=== PATIENT | male | born 1990 | race Caucasian/White ===

== ENCOUNTER 2017-08-30 22:21 | Observation (INO) ==
--- NOTE | 2017-08-30 23:24 | Emergency Department Note ---
Disposition Clinical Impression: Esophageal obstruction due to food impaction Disposition: Admitted As Inpatient Condition: Fair Referrals: NONE,PCP [Primary Care Provider] - Time of Disposition: 23:27 General Adult HPI - General Chief complaint: ED Dental/Oral Stated complaint: FB in throat Time Seen by Provider: 08/30/17 23:16 Source: patient Mode of arrival: private vehicle Limitations: no limitations Nursing Notes Reviewed: Yes Vital Signs Reviewed: Yes - History of Present Illness HPI Narrative: Patient presents to the emergency Department after having eaten some chicken and feel like it got stuck in his esophagus. This started about 7:30 this evening. He went to [facility] and was diagnosed with an esophageal food impaction. They gave him glucagon with no relief. He states that just prior to transfer here they gave him a glass of water and he was unable to get any of that water down. Since she has been in this emergency department he is unable to swallow his own saliva and keeps spitting it out. He has had this issue a number of times in the past. The last time he had an impaction and had to be scoped was 3 years ago. Pain Scale: 0 Improves with: nothing Worsens with: nothing Associated symptoms: Reports: denies other symptoms - Related Data Allergies Allergy/AdvReac Type Severity Reaction Status Date / Time No Known Allergies Allergy Verified 08/30/17 22:26 All systems ED: reviewed and negative except as stated. Constitutional: Denies: fever Cardiovascular: Denies: chest pain Respiratory: Denies: dyspnea Gastrointestinal: Denies: abdominal pain, vomiting Musculoskeletal: Denies: back pain Integumentary: Denies: rash Past Medical History - Past Medical History Attestation: Yes The following information was validated with the patient. Source: patient, old records reviewed, nursing notes reviewed Medical history: Reports: no medical history - Social History Smoking Status: Current every day smoker Alcohol use: Reports: none Drug use: Reports: none Physical Exam - General Limitations: no limitations General appearance: alert, in no apparent distress - Head Head exam: atraumatic, normocephalic, normal inspection - Eye Eye exam: Present: normal appearance, PERRL. Absent: scleral icterus, conjunctival injection - ENT ENT exam: normal exam, mucous membranes moist, normal external ear exam - Neck Neck exam: Present: normal inspection, full ROM, trachea midline - Chest Chest inspection: Present: normal inspection, symmetric chest wall rise. Absent : tenderness - Respiratory Respiratory exam: Present: normal lung sounds bilaterally. Absent: respiratory distress, wheezes - Cardiovascular Cardiovascular exam: Present: regular rate, normal rhythm, normal heart sounds - Abdominal Exam Abdominal exam: Present: soft, Non-Tender - Extremities Exam Extremities exam: Present: normal inspection. Absent: pedal edema - Neurological Exam Neurological exam: Present: alert, oriented X3 - Psychiatric Psychiatric exam: Present: normal affect, normal mood - Skin Skin exam: Present: warm, dry. Absent: rash Course Course Narrative: Patient presents with an esophageal impaction of chicken. Medicinal attempts to alleviate the obstruction have failed. Patient was transferred from [place] because they could not handle the issue. On my evaluation the patient is not really in any distress although he still can handle his own saliva. I spoke with the physician loss control engineer for endoscopy. She recommended admitting the patient to the hospital and she will arrange for endoscopy and food impaction removal. - Consultations Consultation #1: Dr. Pressley, surgery - I discussed the case with the surgeon loss control engineer for endoscopy. She advised admitting the patient to the floor and that she will manage it from there. Time: 23:27 Vital Signs Temperature 98.0 F 08/30/17 22:24 Pulse Rate 84 08/30/17 22:24 Respiratory Rate 16 08/30/17 22:24 Blood Pressure 126/80 08/30/17 22:24 O2 Sat by Pulse Oximetry 96 08/30/17 22:24 Temperature 98.0 F 08/30/17 22:24 Pulse Rate 84 08/30/17 22:24 Respiratory Rate 16 08/30/17 22:24 Blood Pressure 126/80 08/30/17 22:24 O2 Sat by Pulse Oximetry 96 08/30/17 22:24 Oxygen Delivery Oxygen Delivery Room Air
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
[2017-08-31] MEDS ORDERED: Ondansetron 4 MG/2 ML VIAL IVP PRN (06:36)
[2017-08-31] MEDS ORDERED: Lidocaine -MPF 2% 2 ML VIAL ONE (06:44)
[2017-08-31] MEDS ORDERED: *HR* Propofol 200 MG/20 ML VIAL IVP ONE ×3 (06:44→07:14)
[2017-08-31] MEDS ORDERED: 0.9 % Sodium Chloride 1,000 ML IVC SCH (06:45)
[2017-08-31] MEDS ORDERED: Tetracaine/Benzocaine/Butamben 200MG/SPRAY (100SPY/BOT) MM ONE (07:46)
[2017-08-31] MEDS ORDERED: Simethicone 40 MG/0.6 ML MLS IR ONE (07:46)
--- NOTE | 2017-08-31 07:55 | Anesthesia Evaluation PreOp ---
Date of Encounter: 08/31/17 Time of Encounter: 07:54 - Past History Planned Operation: EGD Cardiac History: Denies any Significant Hx Pulmonary History: Smoker BRICK SORTER History: Denies Any Significant HX Other Medical History: Other (Esophageal Foreign Body) Anesthesia History: No Prior Anesthetic Complications, Past Anesthesia (EGD x 4) Alcohol Use: occasionally Drug use: none Medications and Allergies 3 Allergy/AdvReac Type Severity Reaction Status Date / Time No Known Allergies Allergy Verified 08/30/17 22:26 - Meds/Allergy Pre-op Review Medications Reviewed: Yes Allergies Reviewed: Yes Beta Blockers on Current Med List: No Anesthesia Exam Vital Signs/O2 Sat, Most Current Temp Pulse Resp BP Pulse Ox 97.4 F L 65 15 116/70 95 08/31/17 07:44 08/31/17 07:44 08/31/17 07:44 08/31/17 07:44 08/31/17 07:44 - HEENT Pupil (Motor): Pupils equal, EOMI Mallampati: II Teeth: Normal Oral Opening: Greater than 3 - BRICK SORTER LOC: Oriented BRICK SORTER Motor: Normal RUE, Normal LUE, Normal RLE, Normal LLE, Normal Face BRICK SORTER Sensory: Normal: RUE, LUE, RLE, LLE, Face - Cardiac Rhythm: Regular Murmur: None JVD: No Carotid Bruit: No - Pulmonary Breath Sounds: bilateral Clear Respiratory Effort: Symmetrical Anesthesia Assess/Plan ASA Score: 2 Modified Happy Scale for Level of Consciousness: Cooperative, oriented, and tranquil Anesthetic Plan: MAC Autologous Blood: Yes Monitoring Plan: Standard Monitors Recovery Plan: Other
[2017-08-31] MEDS ORDERED: Pantoprazole 40 MG VIAL IVP SCH (09:00)
--- NOTE | 2017-08-31 10:11 | Discharge Summary ---
<Andry Meredith W - Last Filed: 08/31/17 10:45> - NOTES TO OUTPATIENT PROVIDER Notes to Outpatient Provider: Patient tolerated procedure well. Foreign body was removed. Esophageal stricture was noted. Patient has been placed on Puree diet. Orders not resulted at time of discharge: none Date of Encounter: 08/31/17 Time of Encounter: 10:18 - Discharge Diagnosis (1) Esophageal obstruction due to food impaction Priority: Primary Status: Acute (2) Dysphagia Priority: Secondary Status: Chronic Qualifiers: Dysphagia type: esophageal phase Qualified Code(s): R13.10 - Dysphagia, unspecified General Surgery Exam Initial Vital Signs Temp Pulse Resp BP Pulse Ox 98.0 F 84 16 126/80 96 08/30/17 22:24 08/30/17 22:24 08/30/17 22:24 08/30/17 22:24 08/30/17 22:24 - General physical appearance well developed, well nourished, no distress - Eyes normal ocular movement - ENT normal mucosa - Neck no masses, trachea midline, no lymphadectomy - Respiratory normal expansion, normal respiratory effort, clear to auscultation - Cardiovascular Cardiovascular exam: Present: RRR, no murmurs/rubs/gallops - Abdomen Abdomen general surgery: Present: bowel sounds present, soft, non tender - Integumentary Integumentary general surgery: Present: warm and dry - Neurologic Present: CN 2-12 grossly intact, normal coordination, normal sensation - Musculoskeletal Present: normal gait, normal posture - Psychiatric Psychiatric general surgery: Present: appropriate, speech is normal, memory intact - Hospital Course Hospital course: Mr. Olguin is a 27 year old male who presented to the ED late on 08/30/17 with esophageal foreign body. the patient was admitted to the hospital floor and monitored. the Patient received and Upper GI endoscopy with removal of foreign body the morning of 08/31/17. Patient handled procedure well and received diet and follow up instructions. - Time Spent with Patient Total time spent providing and/or coordinating discharge services: Greater than 30 minutes - Discharge Medications Home Medications: No Known Home Drugs 08/31/17 [History] Allergies/Adverse Reactions: 3 Allergy/AdvReac Type Severity Reaction Status Date / Time No Known Allergies Allergy Verified 08/31/17 09:03 Date of admission: 08/31/17 00:57 Primary care physician: PCP WILFRED Discharging clinician: Kaylee Medrano Anticipated date of discharge: 08/31/17 Procedures and tests throughout hospitalization: Upper GI endoscopy Labs on day of discharge: no labs ordered at at this time - Impressions esophageal foreign body - Patient Status Disposition: Home, Self-Care Condition: Good Functional capacity at discharge: independent ambulation Overall status at discharge: patient is back to baseline - Discharge Instructions Instructions: Chronic Dysphagia (DC) Follow Up With: NONE,PCP [Primary Care Provider] - Kvng Dwyer MD [Partnered Physician] - 09/21/17 3:30 pm (patient needs appt to be made in [address] Dwyer) Forms: Work/School Release Additional Instructions: Very important to follow puree diet. - Diet and Activity Activity: resume usual activities as tolerated Diet: other (very important to follow puree diet for 1 week until follow up) <Kaylee Medrano - Last Filed: 08/31/17 12:50> Date of Encounter: 08/31/17 - Discharge Diagnosis (1) Esophageal obstruction due to food impaction Status: Acute (2) Dysphagia Status: Chronic Qualifiers: Dysphagia type: esophageal phase Qualified Code(s): R13.10 - Dysphagia, unspecified General Surgery Exam Initial Vital Signs Temp Pulse Resp BP Pulse Ox 98.0 F 84 16 126/80 96 08/30/17 22:24 08/30/17 22:24 08/30/17 22:24 08/30/17 22:24 08/30/17 22:24 - Hospital Course Hospital course: Mr. Olguin is a 27 year old male - Time Spent with Patient Total time spent providing and/or coordinating discharge services: Date of admission: 08/31/17 00:57 Primary care physician: PCP WILFRED - Attending Attestation I examined this patient and my medical decision-making was reviewed with the Resident Physician. I agree with the documented findings, disposition and treatment plan as described except to the extent set forth below.
[2017-08-31 10:15] VITALS: BP 120/76
== END 2017-08-31 10:46 | disposition home or self-care (01) ==
LOC: EMEROO 22:21 → 3ANU 22:21
PROVIDERS: ADMIT Surgery; ATTEND Surgery
PROC: ENDOEFB (2017-08-31 16:40)